=== PATIENT | male | born 2000 | race Two or more races ===

== ENCOUNTER 2025-03-26 19:42 | Emergency (ER) | payer MEDICAID, SELFPAY ==
[2025-03-26 19:43] VITALS: BMI 25.5
[2025-03-26 20:10] VITALS: BP 145/75; PULSE 75; RESP 18; TEMP 36.9; O2SAT 97
--- NOTE | 2025-03-26 20:16 | XR_ITS ---
Examination: CT abdomen and pelvis without contrast. Coronal 3-D reconstructions. Sagittal 2-D reconstructions. Date and time of exam: March 26, 2025, 2036 hours, comparison 02/28/2017 INDICATIONS: Onset left-sided flank pain today CTDI: vol (mGy): 6.7 DLP: (mGycm): 400 Technique: Axial images of the abdomen have been obtained, 3 mm slice thickness Intravenous contrast material has not been administered. Low dose protocols were performed. One or more of the following dose reduction techniques were used; automated exposure control, adjustment of the mA and/or KV according to patient size, use of iterative reconstruction technique. Findings: No focal liver or splenic lesions No gallstones No pancreatic or adrenal mass No renal or ureteral calculi, no hydronephrosis Aorta normal size Normal appendix No bowel obstruction No diverticulitis Normal prostate Contracted urinary bladder Normal bone density Mild disc narrowing L5-S1 IMPRESSION: No renal or ureteral calculi, no hydronephrosis Normal appendix Contracted urinary bladder
--- NOTE | 2025-03-26 20:16 | EDRME_ITS ---
Rapid Medical Screening Exam [facility] Arrival date/time: 03/26/25 19:42 33M with history of cocaine use (today) presents to ED with 1 day of L flank pain and hematuria/dysuria. Chief Complaint: Urogenital-Male Vital signs: Vital Signs Temperature 98.5 F 03/26/25 20:10 Pulse Rate 75 03/26/25 20:10 Respiratory Rate 18 03/26/25 20:10 Blood Pressure 145/75 H 03/26/25 20:10 Pulse Oximetry (%) 97 03/26/25 20:10 Oxygen Delivery Method Room Air 03/26/25 20:10
[2025-03-26 20:30] LABS: Collection Type, Urine Clean Catch
[2025-03-26 20:36] LABS: Basophils # (Auto) 0.1 Thou/mm3 (0.0-0.2); Basophils % (Auto) 1 % (0-2.5); Eosinophils # (Auto) 0.1 Thou/mm3 (0.0-0.5); Eosinophils % (Auto) 2 % (0-10); Hematocrit 40.1 % (41.0-53.0); Hemoglobin 13.3 g/dL (13.5-16.0); Immature Granulocytes Auto 0.02 Thou/mm3 (0.00-0.00); Lymphocytes # (Auto) 2.7 Thou/mm3 (1.0-4.8); Lymphocytes % (Auto) 36 % (10-50); Mean Corpuscular HGB Conc 33.2 g/dl (31.0-37.0); Mean Corpuscular Hemoglobin 28.4 pg (25.0-35.0); Mean Corpuscular Volume 86 fL (80-100); Monocytes # (Auto) 0.9 Thou/mm3 (0.0-0.8); Monocytes % (Auto) 12 % (0-12); Neutrophils # (Auto) 3.8 Thou/mm3 (1.8-7.7); Neutrophils % (Auto) 50 % (37-80); Nucleated Red Blood Cell # 0.00 Thou/mm3 (0.00-0.00); Nucleated Red Blood Cell % 0 /100 WBC (0); Platelet Count 327 Thou/mm3 (140-440); RDW Standard Deviation 39.8 fL (35.1-43.9); Red Blood Count 4.69 Miln/mm3 (4.50-5.90); White Blood Count 7.6 Thou/mm3 (3.8-10.6)
[2025-03-26 20:43] LABS: Amorphous Crystals,Urine Present (Absent); Bacteria,Urine Rare; Bilirubin,Urine Negative (Negative); Blood,Urine Negative (Negative); Budding Yeast,Urine Present; Clarity,Urine Turbid (Clear/Hazy); Color,Urine Yellow (Lt Yel-Yel); Culture Indicated,Urine Not Indicated; Glucose, Urine Negative (Negative); Ketones,Urine Negative (Negative); Leukocyte Esterase,Urine Negative (Negative); Nitrite,Urine Negative (Negative); PH,Urine 6.5 (5.0-7.0); Protein,Urine Negative (Neg - Trace); RBC,Urine 4 /hpf (0-3); Specific Gravity,Urine 1.023 (1.001-1.035); Squamous Epithelial Cell,Urine < 1 /hpf (0-5); Urobilinogen,Urine 4.0 mg/dL (0.0-1.0); WBC,Urine 8 /hpf (0-5)
[2025-03-26 20:54] LABS: Alanine Aminotransferase 17 U/L (10-49); Albumin, Serum 4.9 gm/dL (3.5-5.0); Albumin/Globulin Ratio 2.2 (1.2-2.2); Alkaline Phosphatase 80 U/L (46-116); Anion Gap 8 (7-16); Aspartate Amino Transferase 19 U/L (0-34); BUN/Creatinine Ratio 9 Ratio (12-20); Bilirubin,Total 0.7 mg/dL (0.3-1.2); Blood Urea Nitrogen 9 mg/dL (9-23); Calcium 9.7 mg/dL (8.3-10.6); Calcium (Corrected) 9.7 mg/dL (8.5-10.1); Carbon Dioxide 29.9 mMol/L (20.0-31.0); Chloride 103 mMol/L (98-107); Creatinine (Component) 1.0 mg/dL (0.6-1.3); Estimated Creatinine Clearance 122.4 mL/min (>60); Globulin 2.2 gm/dL (2.3-3.5); Glucose 91 mg/dL (74-106); Osmolality,Calculated 279 (275-295); Potassium 3.9 mMol/L (3.4-5.1); Sodium 141 mMol/L (136-145); Total Protein 7.1 gm/dL (5.7-8.2); eGFR > 60 See Note
--- NOTE | 2025-03-26 22:45 | EDNOTE_ITS ---
ED Male Genitalurinary RME/HPI General Chief complaint: Urogenital-Male Stated complaint: LEFT FLANK PAIN/PEEING BLOOD Time Seen by Provider: 03/26/25 21:41 Arrival date/time: 03/26/25 19:42 RME / HPI RME / HPI Narrative: 33M with history of cocaine use (today) presents to ED with 1 day of L flank pain and hematuria/dysuria. Severity of symptoms mild. Patient denies any vomiting denies any fever denies any other complaints. Patient admits to abusing a lot of cocaine. Related Data Previous Rx's ?Medication ?Instructions ?Recorded albuterol sulfate 90 mcg/actuation 2 puff inhalation Q ID PRN 04/24/18 aerosol inhaler (Ventolin HFA) shortness of breath or wheezing #8.5 grams ibuprofen 800 mg tablet 800 mg PO TID PRN pain #30 t abs 11/02/20 clotrimazole 1 % topical cream 1 applic topical BID #1 5 grams 03/26/21 triamcinolone acetonide 0.1 % 1 applic topical BID #15 tubes 03/26/21 topical cream albuterol sulfate 2.5 mg/3 mL 2.5 mg (3 mL) inhalation Q4H PRN 11/11/21 (0.083 %) solution for nebulization shortness of breat h or wheezing #75 mL albuterol sulfate 90 mcg/actuation 2 puff inhalation Q 6H PRN 11/11/21 aerosol inhaler shortness of breath or wheez ing #18 grams nebulizer and compressor #1 ea 11/11/21 montelukast 10 mg tablet 10 mg PO QDAY #30 tabs 11/12 Allergies Allergy/AdvReac Type Severity Reaction Status Date / Time No Known Allergies Allergy Verified 11/12/21 15:45 Review of Systems Review of Systems Narrative Review of Systems: Review of system reviewed and within normal limits except mentioned in HPI ED Exam Narrative Physical exam: VITAL SIGNS: Reviewed. GENERAL APPEARANCE: Alert and interactive, follows commands, no acute distress, HEAD AND FACE: Non-traumatic. ENT: PERRL, pink conjunctivitis, eyelid no trauma, Mucous membrane moist. NECK: Supple, nontender, no nuchal rigidity. CHEST: No tenderness, no crepitus, no paradoxical movement, no retractions. LUNGS: Clear, well ventilated, symmetric, no rales, no wheezing, no ronchi, no stridor, good breath sounds bilaterally. HEART: Regular rate, regular rhythm, no murmur, no gallops. ABDOMEN: Soft, positive bowel sounds, nondistended, no guarding, nontender, no rebound, no masses, RECTAL: Deferred. GENITAL: Deferred. NEUROLOGICAL: Gross motor function intact sensory function intact, Appropriate for age. MUSCULOSKELETAL: low back nontender, full range of motion. EXTREMITIES: Nontender, full range of motion. SKIN: Color pink, dry, no rash, no lacerations, no abrasions, no contusions. LYMPHATICS: Deferred. Course Quality Measures none Orders Category Date Time Status CT abdomen pelvis wo con Stat Exams 03/26/25 20:16 Completed CBC Stat Lab 03/26/25 20:24 Completed CMP [Comprehensive Metabolic Panel] Stat Lab 03/26/25 20:24 Completed Urinalysis, C/S if Indicated Stat Lab 03/26/25 20:02 Completed Vital Signs Vital signs: Vital Signs Temperature 98.5 F 03/26/25 20:10 Pulse Rate 75 03/26/25 20:10 Respiratory Rate 18 03/26/25 20:10 Blood Pressure 145/75 H 03/26/25 20:10 Pulse Oximetry (%) 97 03/26/25 20:10 Oxygen Delivery Method Room Air 03/26/25 20:10 Urogenital - Male MDM Narrative MDM Narrative:: 33M with history of cocaine use (today) presents to ED with 1 day of L flank pain and hematuria/dysuria. Severity of symptoms mild. Patient denies any vomiting denies any fever denies any other complaints. Patient admits to abusing a lot of cocaine. Patient CBC came back normal, no leukocytosis, urinalysis positive for hematuria no UTI. CT scan of the abdomen and pelvis came back unremarkable. Results discussed with the patient. Patient stable for discharge home patient was advised to refrain from using a lot of cocaine. Advised him to drink a lot of fluids also. Return to emergency room for worsening of symptoms. Patient agrees with the plan Patient data External records reviewed:: None Clinical information provided by:: patient Social determinants that could affect healthcare access:: none Patient has the following chronic illnesses:: None How is presenting disease/condition affected by chronic disease/condition?: no chronic disease Evaluation data The following diagnostics were reviewed and interpreted by me:: lab results and radiology exam(s) Lab and/or radiology exams considered but not ordered:: None Interpretation Summary: See results MDM Medications / Prescriptions Medications or Prescriptions considered but not ordered:: None Medication administrations:: None Consultations Consultation(s) initiated? (list below): No Diagnosis Urogenital Male Differential Diagnosis: urinary tract infection, acute retention of urine and other (Renal colic, hematuria, kidney stones) Most likely diagnosis given after review of the tests above:: Hematuria Admission Indicated Admission indicated?: not indicated Admission Request Was there a request for admission?: No Disposition Plan Disposition Plan: Discharge Discharge Attestation Discharge Attestation: The patient was given an opportunity to ask questions and understood the discharge instructions. Discharge instructions specifically effects, indications for sooner follow up or return to the emergency department, and the expected course of current diagnosis. Patient condition: Stable Discharge Plan Plan Patient Disposition: HOME (Self Care) Discharge Disposition comment: None Prescriptions/Referrals Prescriptions/Med Rec: No Action albuterol sulfate [Ventolin HFA] 90 mcg/actuation HFA aerosol inhaler 2 puff INH QID PRN (Reason: shortness of breath or wheezing) Qty: 8.5 0RF ibuprofen 800 mg tablet 800 mg PO TID PRN (Reason: pain) Qty: 30 0RF triamcinolone acetonide 0.1 % cream 1 applic topical BID Qty: 15 0RF clotrimazole 1 % cream 1 applic topical BID Qty: 15 0RF albuterol sulfate 2.5 mg /3 mL (0.083 %) solution for nebulization 2.5 mg inhalation Q4H PRN (Reason: shortness of breath or wheezing) Qty: 75 0RF albuterol sulfate 90 mcg/actuation HFA aerosol inhaler 2 puff inhalation Q6H PRN (Reason: shortness of breath or wheezing) Qty: 18 0 RF (DME) nebulizer and compressor Device See Rx Instructions .Route Qty: 1 0RF Rx Instructions: As directed montelukast 10 mg tablet 10 mg PO QDAY Qty: 30 0RF Referrals: Enrique Li MD [Primary Care Provider, Family Practice] - In 1 week Problem List Clinical Impression: Hematuria Patient/Caregiver Discharge Instructions Discharge Activity: activity as tolerated Education Materials: ED Hematuria Additional Instructions: Thank you for the opportunity for serving you today. You are stable for discharged . You are advised to: Follow-up with your PCP in 1 to 2 days Return to ED for worsening of symptoms Increase oral fluids Print Language: Tongan Stand Alone Forms: Darline Award Info., Patient Portal Info Letter PA/FLUE TILE PRESS OPERATOR Supervising Physician PA/FLUE TILE PRESS OPERATOR Supervising Physician: MD Abdelrahman
[2025-03-26 22:48] VITALS: BP 131/77; PULSE 70; RESP 16; TEMP 37; O2SAT 97
== END 2025-03-26 23:08 | disposition home or self-care (01) ==
PROVIDERS: Physician Assistant; Emergency Provider Emergency Medicine; PCP Family Medicine
DX: R10.A2 Flank pain, left side (principal); R31.9 Hematuria, unspecified
CPT/HCPCS: 36415; 74176; 80053; 81001; 85025; 99284